=== PATIENT | male | born 1985 | race Hispanic/Latino ===

== ENCOUNTER 2017-10-23 10:41 | Emergency (ER) | payer OTHER ==
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
[2017-10-23] MEDS ORDERED: KEFLEX500 M1 PO (12:49)
[2017-10-23] MEDS ORDERED: IBUPROFEN800 M1 PO (12:49)
[2017-10-23] MEDS ORDERED: NORCO 5-325 TA1 EACH PO (12:49)
[2017-10-23] MEDS ORDERED: BACTRIM DS TAB1 EACH PO (12:49)
== END 2017-10-23 13:11 ==
LOC: ERH 10:41
DX: L03.032 Cellulitis of left toe (principal); K58.9 Irritable bowel syndrome, unspecified
CPT/HCPCS: 73630-LT